=== PATIENT | female | born 1960 | race Caucasian/White ===

== ENCOUNTER 2017-04-12 11:04 | Outpatient (CLI) | payer MEDICAID, OTHER ==
--- NOTE | 2017-04-12 15:37 | MRI ---
MRI LUMBAR SPINE WITH AND WITHOUT CONTRAST: HISTORY: Low back pain since 2011. The patient fell after surgery. COMPARISON: 01/11/12. TECHNIQUE: Lumbar spine MRI is performed with and without intravenous Gadolinium administration. Multisequentia l, multiplanar imaging is performed. FINDINGS: Appropriate T1 marrow signal intensity of lumbar vertebrae. Lumbar spine vertebral body height is ma intained. There is no fracture. No significant STIR hyperintensity to suggest vertebral body edema or ligamentous injury. No abnormal enhancement. Appropriate signal intensity of the psoas muscles and visualized solid organs. Conus medullaris terminates at the mid T12 level. There is interval laminectomy defect at the L3-L4, L4-L5 disk spaces. On the postcontrast images, th ere is some enhancing scar tissue at the operative site. There is no abnormal enhancement within the thecal sac including the cauda equina and conus medullaris. T12-L1: Adequate disk hydration. No significant central canal stenosis. Neural foramen are patent. L1-L2: Adequate disk hydration. Generalized disk bulge, ligamentum flavum thickening, and facet hyp ertrophy result in mild central canal stenosis. Mild to moderate right and left foraminal narrowing. L2-L3: Disk desiccation with mild loss of disk space height. Generalized disk bulge, ligamentum fla vum thickening, and facet hypertrophy result in mild to moderate central canal stenosis. Mild right and left foraminal narrowing. L3-L4: Disk desiccation with mild loss of disk space height. There are posterior decompressive lami nectomy defects. There is narrowing of the right subarticular zone with complete obscuration of the traversing right L4 nerve root. Minimal narrowing of the left subarticular zone. No significant je nosis of the thecal sac. Moderate right and mild left foraminal narrowing. L4-L5: Disk desiccation with moderate loss of disk space height. There are posterior decompressive laminectomy changes. There is a central and left subarticular disk bulge. Disk material abuts but d oes not obscure the traversing left L5 nerve root. The right subarticular zone is unremarkable. No significant stenosis of the thecal sac. Moderate right and left foraminal narrowing. L5-S1: No high-grade central canal stenosis. Moderate to severe bilateral foraminal narrowing. IMPRESSION: Postsurgical changes of the lumbar spine as above. There are degenerative changes of the lumbar spin e as detailed above. POS: [facility]
== END 2017-04-12 11:05 | disposition home or self-care (01) ==
LOC: MRI 11:04
PROVIDERS: ATTEND Nurse Practitioner Family
DX: M51.16 Intervertebral disc disorders with radiculopathy, lumbar region (principal); M47.26 Other spondylosis with radiculopathy, lumbar region; M48.062 Spinal stenosis, lumbar region with neurogenic claudication; Z98.890 Other specified postprocedural states
CPT/HCPCS: 72158

== ENCOUNTER 2017-11-18 10:43 | Outpatient (CLI) | payer OTHER ==
[2017-11-18] MEDS ORDERED: Gadobenate Dimeglumine 529 MG/1 ML (20ML VIAL) ONE (11:30)
== END 2017-11-18 10:44 | disposition home or self-care (01) ==
LOC: BICMRI 10:43
PROVIDERS: ATTEND Nurse Practitioner Family
DX: M48.062 Spinal stenosis, lumbar region with neurogenic claudication (principal); M99.83 Other biomechanical lesions of lumbar region
CPT/HCPCS: 72158; A9579

== ENCOUNTER 2017-12-02 11:06 | Outpatient (CLI) | payer BC, OTHER | END 2017-12-02 11:07 | disposition home or self-care (01) | LOC: BICMAMMO 11:06 | PROVIDERS: ATTEND Nurse Practitioner Family | DX: Z12.31 Encounter for screening mammogram for malignant neoplasm of breast (principal) | CPT/HCPCS: 77063; 77067 ==

== ENCOUNTER 2019-03-10 17:20 | Emergency (ER) | payer BC, OTHER ==
[2019-03-10 17:51] LABS: #Basophils 0.1 thou/uL (0.0-0.2); #Eosinphils 0.2 thou/uL (0.0-0.7); #Lymphocytes 2.2 thou/uL (1.20-3.40); #Monocytes 0.7 thou/uL (0.11-0.59); #Neutrophils 4.4 thou/uL (1.40-6.50); %Basophils 0.9 % (0.0-1.0); %Lymphocytes 28.8 % (21.0-51.0); %Monocytes 8.9 % (0.0-10.0); %Neutrophils 59.4 % (42.0-75.0); Hemoglobin 12.7 g/dL (12.0-16.0); Mean Corpuscular HGB CONC 33.2 g/dL (32.0-36.0); Mean Corpuscular Hemoglobin 29.1 pg (27.0-31.0); Mean Corpuscular Volume 87.6 fL (78.0-98.0); Mean Platelet Volume 8.6 fL (7.4-10.4); Platelet Count 192 thou/uL (130-400); RBC Distribution Width 11.9 % (11.5-14.5); Red Blood Cell (RBC) Count 4.38 mill/uL (4.20-5.40); White Blood Cell (WBC) Count 7.5 thou/uL (4.8-10.8)
--- NOTE | 2019-03-10 17:59 | RAD ---
TWO VIEW CHEST: 03/10/19 COMPARISON: 12/05/15. CLINICAL INDICATION: Chest pain. FINDINGS: No evidence of consolidation, effusion or pneumothorax. Lungs are hyperinflated. Cardiac silhouette i s stable. No significant interval change otherwise depicted. IMPRESSION: 1. No evidence of focal consolidation. 2. COPD. POS: [facility]
[2019-03-10 18:16] LABS: ALT (SGPT) 13 U/L (8-55); AST (SGOT) 16 U/L (5-34); Albumin 3.8 g/dL (3.5-5.0); Alkaline Phosphatase 87 U/L (40-110); Anion Gap 12 mmol/L (10-20); BUN (Urea Nitrogen) 20 mg/dL (9.8-20.1); Bilirubin, Total 0.2 mg/dL (0.2-1.2); Calc. Creatinine Clearance 0 mL/min (70-130); Carbon Dioxide 25 mmol/L (22-29); Chloride 104 mmol/L (98-107); Estimated GFR-MDRD 66; Globulin 3.4 g/dL (2.4-3.5); Glucose 111 mg/dL (70-105); Potassium 3.8 mmol/L (3.5-5.1); Protein, Total 7.2 g/dL (6.0-8.3); Sodium 137 mmol/L (136-145)
[2019-03-10 20:21] LABS: Troponin I Less than 0.010 ng/mL (< 0.028)
== END 2019-03-10 20:45 | disposition home or self-care (01) ==
LOC: ERS 17:20
DX: R07.89 Other chest pain (principal); I25.10 Atherosclerotic heart disease of native coronary artery without angina pectoris; I10 Essential (primary) hypertension; F17.210 Nicotine dependence, cigarettes, uncomplicated; Z79.01 Long term (current) use of anticoagulants; Z86.73 Personal history of transient ischemic attack (TIA), and cerebral infarction without residual deficits; Z79.899 Other long term (current) drug therapy
CPT/HCPCS: 36415; 71046; 80053; 84484; 85025; 93005

== ENCOUNTER 2019-03-14 18:00 | Observation (INO) | payer BC, OTHER ==
[~2019-03-14 18:00] MED LIST: ISOVUE-370 76%-LOCM 1 ML ONE
--- NOTE | 2019-03-14 18:29 | RAD ---
CHEST ONE VIEW: 03/14/19 HISTORY: Chest pain, difficulty breathing. COMPARISON: 12/05/15 exam. Heart size and mediastinum are within normal limits. The lungs are clear of any infiltrative process. The bones appear slightly demineralized. IMPRESSION: No active intrathoracic disease. Stable chest. POS: [facility]
[2019-03-14 19:07] LABS: #Basophils 0.1 thou/uL (0.0-0.2); #Eosinphils 0.2 thou/uL (0.0-0.7); #Monocytes 0.7 thou/uL (0.11-0.59); #Neutrophils 5.3 thou/uL (1.40-6.50); %Basophils 0.7 % (0.0-1.0); %Eosinophils 1.9 % (0.0-10.0); %Lymphocytes 24.5 % (21.0-51.0); %Neutrophils 64.9 % (42.0-75.0); Hemoglobin 12.9 g/dL (12.0-16.0); Mean Corpuscular HGB CONC 33.5 g/dL (32.0-36.0); Mean Corpuscular Hemoglobin 29.8 pg (27.0-31.0); Mean Corpuscular Volume 88.8 fL (78.0-98.0); Mean Platelet Volume 8.5 fL (7.4-10.4); Platelet Count 204 thou/uL (130-400); RBC Distribution Width 11.8 % (11.5-14.5); Red Blood Cell (RBC) Count 4.35 mill/uL (4.20-5.40); White Blood Cell (WBC) Count 8.2 thou/uL (4.8-10.8)
[2019-03-14] MEDS ORDERED: Ketorolac Tromethamine 30 MG/ML VIAL ONE (19:17)
[2019-03-14] MEDS ORDERED: Nitroglycerin 2% Ointment 1 INCH/1 GM Packet ONE (19:17)
[2019-03-14 19:30] LABS: ALT (SGPT) 16 U/L (8-55); AST (SGOT) 20 U/L (5-34); Albumin 4.1 g/dL (3.5-5.0); Alkaline Phosphatase 92 U/L (40-110); Anion Gap 14 mmol/L (10-20); BUN (Urea Nitrogen) 24 mg/dL (9.8-20.1); Bilirubin, Total 0.4 mg/dL (0.2-1.2); CK (CPK) 539 U/L (29-168); Calc. Creatinine Clearance 0 mL/min (70-130); Calcium 9.3 mg/dL (7.8-10.44); Carbon Dioxide 23 mmol/L (22-29); Chloride 104 mmol/L (98-107); Estimated GFR-MDRD 60; Globulin 3.1 g/dL (2.4-3.5); Glucose 92 mg/dL (70-105); Lipase 40 U/L (8-78); Potassium 4.3 mmol/L (3.5-5.1); Protein, Total 7.2 g/dL (6.0-8.3); Sodium 137 mmol/L (136-145)
--- NOTE | 2019-03-14 20:37 | CT ---
CTA Angio Chest W WO Con History: Chest pain after being arrested Comparison: Chest radiograph same day Findings: CT angiogram chest performed after the intravenous administration of contrast. 3-D renderin g provided. The pulmonary trunk measures 3.2 cm. The pulmonary arteries are mildly dilated. No proximal segmental pulmonary arterial filling defect. No pericardial effusion. Hepatic contour is very lobular although is unchanged from comparison examinations dating back to 201 3 likely sequelae over regenerative nodules. High-grade narrowing, 50-75%, of the celiac trunk due to the median arcuate ligament appears also 50% narrowing of the ostia of the superior mesenteric artery due to calcific and soft plaque. Severe emphysema, centrilobular. No pneumothorax. No effusion. No consolidation. Impression: 1. No pulmonary embolism. 2. No acute intrathoracic abnormality. 3. Chronic findings as described. 4. Apparent decompressed breast implants.
[2019-03-14 23:03] VITALS: BMI 24.7
[2019-03-14 23:27] LABS: Troponin I Less than 0.010 ng/mL (< 0.028)
[2019-03-15 02:03] LABS: Troponin I Less than 0.010 ng/mL (< 0.028)
[2019-03-15] MEDS ORDERED: Nitroglycerin 0.4 MG TAB (25 Tab Bottle) PO PRN (08:59)
[2019-03-15] MEDS ORDERED: FLU VACC QS2019-20(6MOS UP)/PF 60 MCG/0.5 ML SYRINGE IM ONE (09:00)
[2019-03-15] MEDS ORDERED: Aspirin 325 mg Enteric Coated Tablet PO SCH (09:00)
[2019-03-15] MEDS ORDERED: Sodium Chloride 0.9% 1,000 ML IV SCH (09:00)
[2019-03-15] MEDS ORDERED: Ondansetron PF 4 MG/2 ML Vial IVP PRN (09:03)
[2019-03-15] MEDS ORDERED: Acetaminophen 325 MG TAB PO PRN (09:03)
[2019-03-15] MEDS ORDERED: Senokot S 8.6-50 MG TAB PO PRN (09:03)
[2019-03-15] MEDS ORDERED: Ondansetron ODT 4 MG TAB PO PRN (09:03)
[2019-03-15] MEDS ORDERED: Calcium Carbonate 500 MG ChewTAB PO PRN (09:03)
[2019-03-15] MEDS ORDERED: Clopidogrel Bisulfate 75 MG TAB PO SCH (09:15)
[2019-03-15] MEDS ORDERED: Sodium Chloride 0.9% 500 ML IV SCH (09:15)
[2019-03-15] MEDS ORDERED: Aspirin 81 mg Enteric Coated Tablet PO SCH (09:15)
[2019-03-15] MEDS ORDERED: Isosorbide Mononitrate (ER) 30 MG TAB PO SCH (09:15)
[2019-03-15] MEDS ORDERED: ADENOSINE 60 MG/20 ML VIAL ONE (09:47)
[2019-03-15] MEDS ORDERED: HYDROcodone/Acetaminophen 5/325 mg Tablet PO PRN (09:58)
[2019-03-15 12:45] LABS: Amphetamine Detected (NotDetected); Cocaine Metabolite Screen Not Detected (NotDetected); Medtox Reader # READER 4; Methamphetamine Detected (NotDetected); Opiate Screen Detected (NotDetected); Phencyclidine (PCP) Not Detected (NotDetected); THC/Cannabinoid Screen Detected (NotDetected)
[2019-03-15 12:46] LABS: Barbiturates Screen Not Detected (NotDetected); Benzodiazepine Screen Not Detected (NotDetected); Medtox Control Line Valid? VALID (VALID); Methadone Not Detected (NotDetected); Oxycodone Screen Not Detected (NotDetected); Tricyclic Screen Not Detected (NotDetected)
[2019-03-15] MEDS ORDERED: HYDROcodone/Acetaminophen 10/325 mg Tablet PO SCH (13:00)
[2019-03-15] MEDS ORDERED: Lorazepam 0.5 MG TAB PO PRN (13:21)
[2019-03-15] MEDS ORDERED: Gabapentin 300 MG CAP PO SCH (15:00)
--- NOTE | 2019-03-15 15:27 | CON ---
DATE OF CONSULTATION: HISTORY OF PRESENT ILLNESS: The patient is a 58-year-old woman, who presents with chest discomfort. The patient has a previous history of coronary artery disease. She states approximately 9 years ago, she underwent a cardiac evaluation and was found to have a 40% LAD lesion. She also states she underwent a procedure for abdominal aneurysm and had a stent placed in aorta. The patient was admitted in December of 2015 with chest pain. She underwent a stress test, revealed normal left ventricular ejection fraction 76% with no evidence of ischemia. The patient presents with recurrent chest discomfort. She states about a month ago, she started having increasing chest discomfort. She states she has been using more nitroglycerin tablets. The patient has been under a great deal of stress. She states that she developed midsternal chest discomfort. For the past 4 days, this would last up to 30 minutes. The patient denies having any present chest discomfort. PAST MEDICAL HISTORY: 1. CAD. 2. Hypertension. 3. Peripheral vascular disease. 4. Dyslipidemia. PAST SURGICAL HISTORY: Hysterectomy, appendectomy, back surgery. SOCIAL HISTORY: Long history of tobacco abuse. ALLERGIES: CODEINE, DEMEROL, LAMICTAL, PENICILLIN. MEDICATIONS: See nursing list. 1. Aspirin 81. 2. Plavix 75. 3. Gabapentin 600 t.i.d. 4. Imdur 30 q.a.m. 5. Lisinopril-hydrochlorothiazide 1 tablet daily. PHYSICAL EXAMINATION: GENERAL: Ill-appearing woman in distress. VITAL SIGNS: Blood pressure 159/75. NECK: No jugular venous distention. LUNGS: Clear to auscultation. HEART: Regular rate and rhythm. Normal S1 and S2. ABDOMEN: Nondistended. EXTREMITIES: Showed no edema. VASCULAR: Radial pulses are 2+. NEUROLOGIC: Nonfocal. LABORATORY DATA: Sodium 137, potassium 4.3, chloride 104, bicarbonate 23, BUN 24, creatinine 0.95. Troponin 0.01. White blood cell count 8.2, hemoglobin 12.9, hematocrit 38.6, and her platelets are 204. IMAGING STUDIES: Her EKG revealed normal sinus rhythm, normal ECG. IMPRESSION: 1. Chest pain. 2. History of peripheral vascular disease. 3. History of stenting of an aortic aneurysm. 4. Hypertension. 5. Dyslipidemia. 6. Tobacco abuse. This patient presents with recurrent chest discomfort. EKG is unremarkable. Cardiac enzymes revealed no evidence of myocardial infarction. The patient at this time will undergo a stress test to evaluate for ischemia. We will follow this patient with you through her hospitalization. Job ID: [id number] MTDD
--- NOTE | 2019-03-15 15:53 | NM ---
EXAM: CARDIAC SPECT HISTORY: Chest pain TECHNIQUE: A myocardial perfusion scan was performed using the single isotope 1 day protocol with fritz hnetium 99m sestamibi. [10 mCi] was injected intravenously for the rest exam followed by 30 mCi for the stress study. Pharmacologic stress with adenosine was monitored and interpreted by Gloria Teresa nurse practitioner FINDINGS: Homogeneous tracer distribution is seen in the myocardial segments on stress and rest image s without fixed or reversible defects. Gated SPECT LVEF: 78% Wall motion exam: Normal IMPRESSION: Normal myocardial perfusion scan
[2019-03-15 16:12] VITALS: TEMP 97.7
[2019-03-15 17:28] VITALS: BP 162/78
[2019-03-15] MEDS ORDERED: Famotidine 20 MG TAB PO SCH (21:00)
[2019-03-15] MEDS ORDERED: Gabapentin 400 MG CAP PO SCH (21:00)
--- NOTE | 2019-03-16 07:58 | SS ---
DATE OF ADMISSION: 03/14/2019 DATE OF DISCHARGE: 03/15/2019 CHIEF COMPLAINT: Chest discomfort. HISTORY OF PRESENT ILLNESS: The patient is a 58-year-old white female, with coronary artery disease status post stent placement, hypertension, dyslipidemia, and CVA in the past, presented to the hospital with chest discomfort. The chest discomfort started this evening after getting arrested. She describes the chest pain as heaviness along with numbness of her right arm. She also had shortness of breath along with lightheadedness. She rates the pain as 7/10, dull in nature, pressure-like without any aggravating or relieving factor. At times, the pain was getting worse with deep breathing. She denies any orthopnea, paroxysmal nocturnal dyspnea, or lower extremity edema. She was evaluated in the emergency room 3 days ago for chest discomfort and was discharged home. She was advised to follow up with her primary sales utility representative. The patient has not seen a sales utility representative for a long time per the patient report. PAST MEDICAL HISTORY: 1. Coronary artery disease. 2. Hypertension. 3. Peripheral vascular disease. 4. Dyslipidemia. 5. Chronic pain syndrome. 6. History of cerebrovascular accident. PAST SURGICAL HISTORY: 1. Cardiac catheterization. 2. Lumbar surgery. 3. Bilateral iliac artery stent placement as well as in the abdominal aorta. 4. Hysterectomy. 5. Appendectomy. 6. Breast implant. ALLERGIES: THE PATIENT IS ALLERGIC TO CODEINE, LAMICTAL, DEMEROL, AND PENICILLIN. CURRENT HOME MEDICATIONS: The patient is on; 1. Aspirin. 2. Plavix. 3. Lasix as needed. 4. Gabapentin. 5. Isosorbide mononitrate. 6. Lisinopril. 7. Hydrochlorothiazide. 8. Topamax. 9. Sublingual nitroglycerin. 10. Omeprazole. 11. [place]. She is unable to provide the exact dosages of the medicines. SOCIAL HISTORY: The patient has a long history of tobacco dependence. She currently lives at home with her . 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 She is full code and makes her own decision with the help of her family. FAMILY HISTORY: Positive for coronary artery disease and CVA. REVIEW OF SYSTEMS: All other review of systems was reviewed and was found negative. PHYSICAL EXAMINATION: VITAL SIGNS: Temperature 98.2, respirations 22, pulse of 73, blood pressure of 173/117 with O2 saturation 100% on room air. GENERAL: A 58-year-old female in no apparent distress. Denies any chest discomfort at this time. HEENT: Head, atraumatic and normocephalic. Sclerae anicteric. Moist mucous membranes. No oral lesion. NECK: Supple. No JVD appreciated. No carotid bruit. LUNGS: Clear to auscultation bilaterally. No wheezing, rales, rhonchi. HEART: S1, S2 present. Regular rate and rhythm. No murmurs, rubs, or gallops appreciated. ABDOMEN: Soft, nontender. Bowel sounds present. EXTREMITIES: No edema or calf tenderness. NEUROLOGY: Grossly nonfocal. Moves all 4 extremities. PSYCHIATRY: Alert, awake, oriented x3. SKIN: Warm and dry. LYMPH NODES: No palpable lymph nodes in the neck. PERIPHERAL VASCULAR: Radial pulses palpable bilaterally. MUSCULOSKELETAL: No joint swelling or tenderness. LABORATORY FINDINGS: WBC 8.2 with hemoglobin 12.9. D-dimer 1.04. BUN 24 with creatinine 0.95. CK was 539. Troponin was negative. Urine drug screen was positive for opiates, methamphetamines, and cannabis. CT angiogram of the chest by my review was negative for infiltrate or edema. Chest x-ray by my review was negative. BRIEF HOSPITAL COURSE: The patient was admitted to the telemetry unit with a diagnosis of chest discomfort, rule out acute coronary syndrome. Serial troponins remained negative. Urine drug screen, however, was positive for methamphetamine, amphetamine, cannabinoid, and opiate. Lifestyle modification was emphasized. The patient was evaluated by Cardiology, Dr. Rohan Lewis. She underwent a Cardiolite stress test that was negative for reversible ischemia. Ejection fraction was 78% without any wall motion abnormality. She has been cleared by Cardiology for discharge. FINAL DIAGNOSES: 1. Chest discomfort, acute coronary syndrome ruled out. 2. Coronary artery disease, on aspirin and Plavix. 3. Chronic pain syndrome. 4. Methamphetamine abuse. 5. Cannabis abuse. 6. Hypertension. 7. Peripheral vascular disease. 8. History of cerebrovascular accident. 9. Ongoing tobacco abuse. The patient was counseled. 10. Statin intolerance. 11. Elevated CK. A repeat CK after 3 to 4 days is recommended. 12. Chronic kidney disease, stage 2. 13. Elevated D-dimer. CT angiogram of the chest was negative. Plan of care was discussed with the patient in detail, she stated understanding. Job ID: [id number]
[2019-03-16] MEDS ORDERED: Aspirin 81 mg Enteric Coated Tablet PO SCH (09:00)
[2019-03-16] MEDS ORDERED: Isosorbide Mononitrate (ER) 30 MG TAB PO SCH (09:00)
[2019-03-16] MEDS ORDERED: Clopidogrel Bisulfate 75 MG TAB PO SCH (09:00)
[2019-03-16] MEDS ORDERED: Topiramate 25 MG TAB PO SCH (09:00)
--- NOTE | 2019-03-19 00:12 | EKG ---
Test Reason : Blood Pressure : / mmHG Vent. Rate : 066 BPM Atrial Rate : 066 BPM P-R Int : 146 ms QRS Dur : 074 ms QT Int : 424 ms P-R-T Axes : 054 028 063 degrees QTc Int : 444 ms Normal sinus rhythm Normal ECG Confirmed by GAMA DEMPSEY ([id number]), map editor ANNA MENDEZ ([id number]) on 03/19/2019 12:12:17 AM Referred By: Confirmed By:GAMA DEMPSEY
== END 2019-03-15 17:54 | disposition home or self-care (01) ==
LOC: ERS 18:00 → 2SW 22:04
PROVIDERS: ADMIT Hospitalist; ATTEND Hospitalist
DX: R07.89 Other chest pain (principal); I25.10 Atherosclerotic heart disease of native coronary artery without angina pectoris; G89.4 Chronic pain syndrome; I12.9 Hypertensive chronic kidney disease with stage 1 through stage 4 chronic kidney disease, or unspecified chronic kidney disease; N18.2 Chronic kidney disease, stage 2 (mild); E78.5 Hyperlipidemia, unspecified; F12.10 Cannabis abuse, uncomplicated; F17.210 Nicotine dependence, cigarettes, uncomplicated; I73.9 Peripheral vascular disease, unspecified; Z79.82 Long term (current) use of aspirin; Z79.899 Other long term (current) drug therapy; Z86.73 Personal history of transient ischemic attack (TIA), and cerebral infarction without residual deficits; Z88.5 Allergy status to narcotic agent; Z88.0 Allergy status to penicillin; Z95.5 Presence of coronary angioplasty implant and graft
CPT/HCPCS: 36415; 71045; 71275; 78452; 80053; 80306; 82550; 83690; 84484; 85025; 85379; 90471; 90686; 93005; 93017; 93306; 96361; 96372; 96374; A9500; G0008; G0378; J0153; J1885; Q9966

== ENCOUNTER 2019-12-01 11:32 | Inpatient (IN) | payer BC, OTHER ==
[~2019-12-01 11:32] MED LIST changes: -ISOVUE-370 76%-LOCM 1 ML ONE; +Iopamidol-370 76% 500 ML 1 ML ONE
[2019-12-01 12:02] LABS: #Basophils 0.1 thou/uL (0.0-0.2); #Eosinphils 0.1 thou/uL (0.0-0.7); #Lymphocytes 2.3 thou/uL (1.20-3.40); #Monocytes 0.8 thou/uL (0.11-0.59); #Neutrophils 9.6 thou/uL (1.40-6.50); %Basophils 0.6 % (0.0-1.0); %Eosinophils 0.8 % (0.0-10.0); %Lymphocytes 17.8 % (21.0-51.0); %Monocytes 6.1 % (0.0-10.0); %Neutrophils 74.7 % (42.0-75.0); Hemoglobin 14.7 g/dL (12.0-16.0); Mean Corpuscular HGB CONC 32.7 g/dL (32.0-36.0); Mean Corpuscular Hemoglobin 28.9 pg (27.0-31.0); Mean Corpuscular Volume 88.4 fL (78.0-98.0); Mean Platelet Volume 9.7 fL (7.4-10.4); Platelet Count 248 thou/uL (130-400); White Blood Cell (WBC) Count 12.9 thou/uL (4.8-10.8)
[2019-12-01 12:07] LABS: Prothrombin Time 12.8 sec (12.0-14.7)
[2019-12-01 12:17] LABS: ALT (SGPT) 14 U/L (8-55); AST (SGOT) 15 U/L (5-34); Albumin 4.2 g/dL (3.4-4.8); Alkaline Phosphatase 104 U/L (40-110); Anion Gap 16 mmol/L (10-20); BUN (Urea Nitrogen) 25 mg/dL (9.8-20.1); Bilirubin, Total 0.3 mg/dL (0.2-1.2); Calc. Creatinine Clearance 0 mL/min (70-130); Calcium 10.1 mg/dL (7.8-10.44); Carbon Dioxide 27 mmol/L (23-31); Chloride 101 mmol/L (98-107); Estimated GFR-MDRD 53; Globulin 3.8 g/dL (2.4-3.5); Glucose 122 mg/dL (80-115); Potassium 3.7 mmol/L (3.5-5.1); Sodium 140 mmol/L (136-145)
[2019-12-01 12:23] LABS: Acetaminophen Less than 6.0 mcg/mL (10.0-30.0); Alcohol Less than 10 mg/dL (Less than 10); Salicylate Less than 8.0 mg/dL (15.0-30.0)
[2019-12-01 13:32] LABS: Amphetamine Detected (NotDetected); Barbiturates Screen Not Detected (NotDetected); Benzodiazepine Screen Not Detected (NotDetected); Cocaine Metabolite Screen Not Detected (NotDetected); Medtox Control Line Valid? VALID (VALID); Medtox Reader # READER 1; Methadone Not Detected (NotDetected); Methamphetamine Not Detected (NotDetected); Opiate Screen Not Detected (NotDetected); Oxycodone Screen Not Detected (NotDetected); Phencyclidine (PCP) Not Detected (NotDetected); THC/Cannabinoid Screen Not Detected (NotDetected); Tricyclic Screen Not Detected (NotDetected)
--- NOTE | 2019-12-01 13:50 | CT ---
CT BRAIN WITHOUT CONTRAST: 12/01/19 HISTORY: 59-year-old female with level II stroke. Aphasia. COMPARISON: 10/30/11. FINDINGS: No evidence of acute infarct, hemorrhage, midline shift, or abnormal extra-axial fluid collections ar e seen. The ventricular size is normal and the basilar cisterns patent. Changes of chronic small vess el ischemic disease again noted. The bony calvarium is intact. The visualized paranasal sinuses and m astoid air cells are well aerated. The mass in the right superficial lobe of the right parotid gland demonstrates mild interval increase in size measuring about 12 mm. IMPRESSION: 1. No CT evidence of acute intracranial process. 2. Slowly growing right parotid mass. ENT consultation is recommended. Discussed over the telephone with ER physician, Dr. James Fitzgerald at 11:54 a.m. Paloma CALLOWAY POS: [facility]
--- NOTE | 2019-12-01 13:58 | RAD ---
EXAM: CHEST ONE VIEW: 12/01/19 HISTORY: Aphasia. Stroke. COMPARISON: 03/14/19. FINDINGS: Increased linear and interstitial markings bilaterally. Heart size is normal. No confluent pneumonia, overt edema, or pleural effusion. IMPRESSION: Minimal increased markings bilaterally. Atherosclerosis of the aorta. No acute intrathoracic disease. POS: [facility]
[2019-12-01] MEDS ORDERED: Ondansetron PF 4 MG/2 ML Vial IVP PRN (15:39)
[2019-12-01] MEDS ORDERED: Acetaminophen 650 MG Suppository PR PRN (15:39)
[2019-12-01] MEDS ORDERED: Furosemide 20 MG TAB PO PRN (15:43)
[2019-12-01] MEDS ORDERED: Nitroglycerin 0.4 MG TAB (25 Tab Bottle) SL PRN (15:43)
[2019-12-01 15:46] LABS: Bacteria/HPF None Seen HPF (None Seen); Bilirubin Negative (Negative); Blood, Urine Negative (Negative); Clarity Clear (Clear); Glucose, Urine (Dipstick) Normal (Negative); Leukocyte 75 Leu/uL (Negative); Nitrite Negative (Negative); Protein, Urine (Dipstick) Negative (Neg-Trace); RBC/HPF 0-3 HPF (0-3); Squamous Epithelial 0-3 HPF (0-3); Urobilinogen Normal mg/dL (Less than 2); WBC/HPF 0-3 HPF (0-3)
[2019-12-01 16:19] LABS: Hemoglobin A1c 5.7 % (4.0-6.0)
[2019-12-01 16:33] LABS: Cardiac Risk 5.6 (Less than 4.5)
--- NOTE | 2019-12-01 16:47 | HP ---
CHIEF COMPLAINT: Expressive aphasia. HISTORY OF PRESENT ILLNESS: A 59-year-old female without significant past medical history, had stroke-like symptoms 4 days ago, witnessed by her spouse. The patient has a history of coronary artery disease on Plavix, hypertension, peripheral vascular disease, chronic pain syndrome, and history of CVA in the past. Her symptoms of expressive aphasia started 4 days prior. Initially, she had problem finding words since Wednesday, today it got worse. She did not have any coherent speech. No other sensory or strength impairment. She did not have any chest pain, shortness of breath, or headache. No sick exposure. No fever or shortness of breath. She takes aspirin and Plavix daily, she took this morning. Her chest x -ray is clear. EKG normal sinus rhythm. CT head as well as CT angiogram are negative. Her spouse is not at bedside. Information gathered from the ER physician as well as review of chart. The patient is not verbalizing much, but she does understand what I am saying and she does follow the commands. She has right facial droop. She has significant expressive aphasia. She has no sensory impairment. She is moving her extremities spontaneously. REVIEW OF SYSTEMS: Complete review of systems not obtainable because of the patient's expressive aphasia, but it appears she did not have any prodromal symptoms of urinary tract infection or fever or chills or sick exposure. PAST MEDICAL HISTORY: Coronary artery disease, peripheral vascular disease, chronic pain syndrome, history of CVA without significant residual deficits in the past, hyperlipidemia, and hypertension. PAST SURGICAL HISTORY: Lumbar surgery, hysterectomy, appendectomy, breast implant, and cardiac cath as well as bilateral iliac artery stent placement. HOME MEDICATIONS: 1. Topamax 50 mg daily. 2. Protonix 40 mg daily. 3. Nitrostat 0.4 mg sublingually every 5 minutes as needed. 4. Lisinopril/hydrochlorothiazide 20/25 mg daily. 5. Imdur 30 mg daily. 6. Lasix 20 mg daily as needed. 7. Plavix 75 mg daily. 8. Aspirin 81 mg daily. 9. [place] 10/325 every 4 hours. 10. Gabapentin 600 mg three times a day. SOCIAL HISTORY: The patient lives with her spouse. Smoking and alcohol use. Not able to get in any other information. FAMILY HISTORY: Not obtainable. PHYSICAL EXAMINATION: GENERAL: She is normotensive, afebrile. She has right facial droop. Sensation intact. Strength in both upper and lower extremities, 4/5. She has significant right facial droop. Significant expressive aphasia. Alert and oriented x3. CARDIOVASCULAR: Regular rate and rhythm without murmurs, rubs, or gallops. LUNGS: Clear to auscultation bilaterally without wheezing, rales, or rhonchi. ABDOMEN: Soft, nontender, nondistended. Good bowel sounds. EXTREMITIES: Without pitting edema. LABORATORY DATA: WBC 12.9. INR is 1.0. Creatinine is 1.06, rest of the CMP panel in the normal range. Troponin 0.012. UA is pending. Urinalysis, amphetamine detected. IMAGING STUDIES: CT head as well as CT angiogram, no abnormality. IMPRESSION AND PLAN: 1. A 59-year-old female with a history of CVA, coronary artery disease, peripheral vascular disease, chronic pain syndrome as well as neuropathy, presenting with expressive aphasia. We will get MRI of the brain. 2D echo. Neuro consult placed for Dr. Cruz. PT, OT as well as speech therapy. Bedside swallow, if successful, then we will continue her home regimen including aspirin and Plavix. She is not on Lipitor. I will start her on a low dose and adjust the dose based on her LDL level.-------[later noted that she has allergy for statin] Neuro check q.4 hours. 2. Hypertension: For now allow permissive hypertention and once SBP> 160, continue with lisinopril/hydrochlorothiazide as well as Imdur per home regimen. 3. Coronary artery disease. Currently, her troponin is negative. We will continue with aspirin, Plavix, Imdur, lisinopril/hydrochlorothiazide as well. 4. Chronic pain syndrome. Continue with [place] for now. 5. Urinalysis pending. We will follow up on that. 6. Rest of the management based on the clinical course. 7. Await an MRI and rule out acute bleed, before initiating on anticoagulation for deep venous thrombosis prophylaxis. Job ID: [id number] [facility]
[2019-12-01 16:55] VITALS: BMI 21.4
[2019-12-02] MEDS ORDERED: Lisinopril/Hydrochlorothiazide 20/25 mg Tablet PO SCH (09:00)
[2019-12-02] MEDS: Aspirin 81 mg Enteric Coated Tablet PO SCH (09:30)
[2019-12-02] MEDS: Clopidogrel Bisulfate 75 MG TAB PO SCH (09:30)
[2019-12-02] MEDS: Topiramate 25 MG TAB PO SCH ×2 (09:31→09:35)
[2019-12-02] MEDS: Acetaminophen 325 MG TAB PO PRN (09:38)
[2019-12-02] MEDS ORDERED: Diazepam 5 MG TAB PO SCH (11:15)
--- NOTE | 2019-12-02 13:26 | MRI ---
MRI OF BRAIN WITH AND WITHOUT CONTRAST: 12/02/19 INDICATIONS: CVA. Right sided weakness. Comparison is made to a prior MRI from 2012. FINDINGS: Motion artifact degrades many of the sequences. Diffusion weighted sequence shows numerous foci of restricted diffusion involving the left cerebral h emisphere. These are seen primarily in the subcortical white matter and the deep white matter of the left cerebral hemisphere. A few tiny cortical foci are seen. Increased FLAIR signal is seen in these locations. Findings are consistent with deep watershed white matter infarct which is often associated with carotid artery disease. Recent CTA head showed mild atherosclerotic changes at both bulbs. This could also be seen with hypoperfusion and recommend clinical correlation regarding any prior episode s. No abnormal enhancement identified. IMPRESSION: Extensive area of deep watershed infract involving the subcortical and deep white matter of the left cerebral hemisphere. This can be associated with carotid artery disease or hypoperfusion. Recommend c linical correlation. This is in the distribution of the left middle cerebral artery. POS: [facility]
--- NOTE | 2019-12-02 13:52 | CON ---
DATE OF CONSULTATION: 12/02/2019 REASON FOR CONSULTATION: Expressive aphasia. HISTORY OF PRESENT ILLNESS: Ms. Marcos is a 59-year-old female with medical history significant for coronary artery disease, peripheral vascular disease, prior CVA, hyperlipidemia, hypertension, presented with stroke-like symptoms, which were witnessed by a spouse. The patient developed difficulty talking and finding words, which became progressively worse over the next few days. The patient is unable to give the history, so history is taken from review of the medical records. There is no documentation of nausea, vomiting, headache, chest pain, abdominal pain associated with aphasia and weakness. She takes aspirin and Plavix because of the prior stroke. She was brought to the emergency room with head CT was done, which was negative for acute intracranial pathology. CT angiogram was also done , which was negative for hemodynamically significant stenosis. She was admitted for further evaluation. REVIEW OF SYSTEMS: Unable to perform because of expressive aphasia. PAST MEDICAL HISTORY: Coronary artery disease, peripheral vascular disease, chronic pain syndrome, prior CVA, hyperlipidemia, and hypertension. PAST SURGICAL HISTORY: Lumbar surgery, hysterectomy, appendectomy, breast implant, cardiac catheterization as well as bilateral iliac artery stent placement. HOME MEDICATIONS: 1. Topamax 50 mg daily. 2. Protonix 40 mg daily. 3. Nitrostat 0.4 mg sublingually as needed. 4. Lisinopril/hydrochlorothiazide 20/25 mg daily. 5. Imdur 30 mg daily. 6. Lasix 20 mg as needed. 7. Plavix 75 mg daily. 8. Aspirin 81 mg daily. 9. [place] 10/325 every 4 hours. 10. Gabapentin 600 mg three times a day. SOCIAL HISTORY: . She lives with her spouse. Denies smoking, alcohol, or illegal drug use. No documentation of smoking, alcohol, or illegal drug use. FAMILY HISTORY: Not significant. ALLERGIES; Penicillin, HMG Coa reductase, codeine - Objective Vital Signs & Weight: Vital Signs (12 hours) Temp Pulse Pulse Resp BP BP Pulse Ox 12/02/19 15:59 97.7 F 68 20 116/67 94 L 12/02/19 12:00 97.9 F 95 16 114/61 96 12/02/19 09:31 88 12/02/19 08:35 101 H 146/80 H 12/02/19 08:05 97 12/02/19 07:23 97.8 F 88 19 150/81 H 97 Weight Weight 137 lb 1.6 oz I&O: 12/01/19 12/02/19 12/03/19 06:59 06:59 06:59 Intake Total 480 Balance 480 Active Medications Generic Name Dose Route Start Last Admin Trade Name Freq PRN Reason Stop Dose Admin Acetaminophen 650 mg 12/01/19 15:39 12/02/19 09:38 Tylenol PO 650 mg Q4H PRN Administration Headache/Fever/Mild Pain (1-3) Aspirin 81 mg 12/02/19 09:00 12/02/19 09:30 Ecotrin PO 81 mg DAILY DERRELL Administration Clopidogrel Bisulfate 75 mg 12/02/19 09:00 12/02/19 09:30 Plavix PO 75 mg DAILY DERRELL Administration Pantoprazole Sodium 40 mg 12/02/19 09:00 12/02/19 09:30 Protonix PO 40 mg DAILY DERRELL Administration - Exam General Appearance: awake alert, ill appearing Eye: PERRL ENT: normocephalic atraumatic Neck: supple Heart: RRR, normal peripheral pulses Respiratory: CTAB Gastrointestinal: soft, normal bowel sounds Neurological - Mental status; the patient has significant aphasia and she opens her eyes to verbal stimuli. Motor; muscle tone is decreased in the right upper and lower extremities as compared to the left upper and lower extremities. Right upper extremity 3/5, right lower extremity 4/5, left upper and lower extremity 5/5. Cerebellar; unable to perform on the right secondary to weakness. Cranial nerves; pupils are equal and reactive to light. Face, right facial droop. Tongue midline. Moves neck in both direction. Hearing seems to be intact. DATA REVIEWED: I reviewed the CT as well as CT angiogram did not reveal any abnormality. ASSESSMENT AND PLAN: Ms. Karely Marcos is a 59-year-old female with history significant for hypertension, hyperlipidemia, prior cerebrovascular accident, coronary artery disease, who presented for expressive aphasia and right hemiparesis with right facial droop, most likely stroke in the left middle cerebral artery territory. Consider MRI of the brain to evaluate for acute intracranial process. 2D echo to rule out cardioembolic source . Continue aspirin and Plavix for secondary stroke prevention. Recommend statin for secondary stroke prevention and check fasting lipid panel. Neuro checks every 4 hours. Monitor blood pressure. Permissive control of blood pressure at this time. Strict control of blood glucose. Telemetry. PT/OT/Speech. Continue medical management per Primary Team. Plan discussed with the primary attending Dr. Huggins. We will continue to follow. Thank you for the consult. Job ID: [id number] [facility]
--- NOTE | 2019-12-02 16:59 | PDOC.HOSPP ---
- Subjective Encounter Date: 12/02/19 Encounter Time: 16:30 Subjective: pt returned from MRI, reprt reviewed. pt remains the same today except able to say few words but it is uninterpretable. talk to RN. - Objective Vital Signs & Weight: Vital Signs (12 hours) Temp Pulse Pulse Resp BP BP Pulse Ox 12/02/19 15:59 97.7 F 68 20 116/67 94 L 12/02/19 12:00 97.9 F 95 16 114/61 96 12/02/19 09:31 88 12/02/19 08:35 101 H 146/80 H 12/02/19 08:05 97 12/02/19 07:23 97.8 F 88 19 150/81 H 97 Weight Weight 137 lb 1.6 oz I&O: 12/01/19 12/02/19 12/03/19 06:59 06:59 06:59 Intake Total 480 Balance 480 Result Diagrams: 12/01/19 11:44 12/01/19 11:44 Hospitalist ROS - Medication Medications: Active Medications Generic Name Dose Route Start Last Admin Trade Name Abisaiq PRN Reason Stop Dose Admin Acetaminophen 650 mg 12/01/19 15:39 12/02/19 09:38 Tylenol PO 650 mg Q4H PRN Administration Headache/Fever/Mild Pain (1-3) Aspirin 81 mg 12/02/19 09:00 12/02/19 09:30 Ecotrin PO 81 mg DAILY DERRELL Administration Clopidogrel Bisulfate 75 mg 12/02/19 09:00 12/02/19 09:30 Plavix PO 75 mg DAILY DERRELL Administration Pantoprazole Sodium 40 mg 12/02/19 09:00 12/02/19 09:30 Protonix PO 40 mg DAILY DERRELL Administration - Exam General Appearance: awake alert, ill appearing Eye: PERRL ENT: normocephalic atraumatic Neck: supple Heart: RRR, normal peripheral pulses Respiratory: CTAB Gastrointestinal: soft, normal bowel sounds Neurological: facial droop Neurological - other findings: aphasia Psychiatric: oriented to person, somnolent Hosp A/P - Plan Watershed infarct in Left hemisphere Expressive aphasia --cw speech therapy --asa, plavix --permissive hypertension for another 24hrs. -PT/OT c/s palced hx of prior CVA without deficits -- mgmt as above HTN - allow permissive HTN x 24hrs and intervene w.. PRN if SBP>180 NO aC for next 24hrs. placed order for carotid doppler -- yes, CTA --no abnormality. scds for now for DVT ppx.
--- NOTE | 2019-12-02 23:45 | ULT ---
BILATERAL CAROTID DUPLEX ULTRASOUND: HISTORY: CVA TECHNIQUE: Grayscale, color-flow and spectral Doppler ultrasound imaging of the extracranial carotid artery syst ems and vertebral arteries was performed bilaterally. FINDINGS: There is [id number] atherosclerotic plaque involving both carotid bulbs. The peak systolic velocity in the right ICA measures 71.1 cm/s. The peak systolic velocity in the ri ght CCA measures 130.3 cm/s. The peak systolic velocity in the left ICA measures 71.1 cm/s. The peak systolic velocity in the l eft CCA measures 102.9 cm/s. The right IC/CC ratio is0.55. The left IC/CC ratio is 0.69. Vertebral flow: antegrade, bilaterally. . IMPRESSION: No hemodynamically significant stenosis of Both ICAs.
[2019-12-03 04:47] LABS: #Basophils 0.1 thou/uL (0.0-0.2); #Eosinphils 0.2 thou/uL (0.0-0.7); #Lymphocytes 2.4 thou/uL (1.20-3.40); #Monocytes 0.8 thou/uL (0.11-0.59); #Neutrophils 6.3 thou/uL (1.40-6.50); %Basophils 0.8 % (0.0-1.0); %Eosinophils 1.6 % (0.0-10.0); %Lymphocytes 24.4 % (21.0-51.0); %Monocytes 8.5 % (0.0-10.0); %Neutrophils 64.8 % (42.0-75.0); Hemoglobin 13.7 g/dL (12.0-16.0); Mean Corpuscular HGB CONC 33.6 g/dL (32.0-36.0); Mean Corpuscular Hemoglobin 29.6 pg (27.0-31.0); Mean Corpuscular Volume 87.9 fL (78.0-98.0); Mean Platelet Volume 9.6 fL (7.4-10.4); Platelet Count 240 thou/uL (130-400); RBC Distribution Width 11.8 % (11.5-14.5); Red Blood Cell (RBC) Count 4.64 mill/uL (4.20-5.40); White Blood Cell (WBC) Count 9.7 thou/uL (4.8-10.8)
[2019-12-03] MEDS: Clopidogrel Bisulfate 75 MG TAB PO SCH (08:37)
[2019-12-03] MEDS: Aspirin 81 mg Enteric Coated Tablet PO SCH (08:37)
[2019-12-03] MEDS ORDERED: Lisinopril/Hydrochlorothiazide 20/25 mg Tablet PO SCH (09:00)
[2019-12-03] MEDS ORDERED: Sodium Chloride 0.9% 200 ML IV PRN (10:00)
--- NOTE | 2019-12-03 12:49 | PDOC.HOSPP ---
- Subjective Encounter Date: 12/03/19 Encounter Time: 09:30 Subjective: pt quite anxious to go home, spouse states that they live an hour from here, prefer home PT. one BP reading low nl, but came back. - Objective Vital Signs & Weight: Vital Signs (12 hours) Temp Pulse Resp BP Pulse Ox 12/03/19 11:20 97.5 F L 60 17 141/77 H 95 12/03/19 08:37 93 L 12/03/19 07:28 97.7 F 76 18 97/51 L 93 L 12/03/19 03:45 97.4 F L 64 16 141/75 H 96 Weight Weight 137 lb 1.6 oz I&O: 12/02/19 12/03/19 12/04/19 06:59 06:59 06:59 Intake Total 480 650 Output Total 0 Balance 480 650 Result Diagrams: 12/03/19 04:32 12/01/19 11:44 Hospitalist ROS - Medication Medications: Active Medications Generic Name Dose Route Start Last Admin Trade Name Abisaiq PRN Reason Stop Dose Admin Acetaminophen 650 mg 12/01/19 15:39 12/02/19 09:38 Tylenol PO 650 mg Q4H PRN Administration Headache/Fever/Mild Pain (1-3) Aspirin 81 mg 12/02/19 09:00 12/03/19 08:37 Ecotrin PO 81 mg DAILY DERRELL Administration Clopidogrel Bisulfate 75 mg 12/02/19 09:00 12/03/19 08:37 Plavix PO 75 mg DAILY DERRELL Administration Pantoprazole Sodium 40 mg 12/02/19 09:00 12/03/19 08:37 Protonix PO 40 mg DAILY DERRELL Administration - Exam General Appearance: NAD, awake alert Eye: PERRL ENT: normocephalic atraumatic Neck: supple Heart: RRR, normal peripheral pulses Respiratory: CTAB, normal chest expansion Gastrointestinal: soft, normal bowel sounds, no guarding Extremities - other findings: RUE 1/5, RLE 2/5; LUE & LLE 10/09 Neurological: facial droop, speech deficit Neurological - other findings: RUE 1, RLE 2/5; LUE & LLE 10/09 Psychiatric: A&O x 3 Hosp A/P - Plan Watershed infarct in Left hemisphere Expressive aphasia------------> on --cw speech therapy --asa, plavix --permissive hypertension for another 24hrs. -PT/OT c/s placed carotid doppler -- -> No sig.stenosis b/l, CTA --no abnormality. RUE 06/11, RLE 07/12; LUE & LLE 10/09 Right hemiparesis --would benefit with aggressive at rehab facility --but not sure pt prefer that -she is anxi this am to go home actually -- spouse states that he will wheel her for out [smoking?] and states that he may be able to help at home if he can get walker, -- will request PT and CM to decide on that. hx of prior CVA without deficits -- mgmt as above HLP w.. LDL 156 --statin contra -- as documented allergy HTN - allow permissive HTN x 24hrs and intervene w.. PRN if SBP>180 -technically pt had stroke sxs 6 days including 4 days at home prior to admission -as SBP in 140 range, will let it without adding home BP meds and if it goes above 160, then start low dose lisinopril only without adding HCTZ[home regimen] It also appears pt smokes and uses meth - could go into anxi/agitation--monitor closely -- it looks like she is going out w.. spouse for smokes -Nicotine patch PRN ordered. NO aC for next 24hrs. ---------can start lovenox sc for DVT .
[2019-12-03] MEDS ORDERED: Nicotine 14 MG PATCH TD PRN (13:00)
--- NOTE | 2019-12-03 13:21 | PDOC.HOSPP ---
- Subjective Encounter Date: 12/03/19 Subjective: NEUROLOGY PROGRESS NOTE No acute events overnight. Clinically improved but aphasic. - Objective Vital Signs & Weight: Vital Signs (12 hours) Temp Pulse Resp BP Pulse Ox 12/03/19 11:20 97.5 F L 60 17 141/77 H 95 12/03/19 08:37 93 L 12/03/19 07:28 97.7 F 76 18 97/51 L 93 L 12/03/19 03:45 97.4 F L 64 16 141/75 H 96 Weight Weight 137 lb 1.6 oz I&O: 12/02/19 12/03/19 12/04/19 06:59 06:59 06:59 Intake Total 480 650 Output Total 0 Balance 480 650 Result Diagrams: 12/03/19 04:32 12/01/19 11:44 Radiology Reviewed by me: Yes EKG Reviewed by me: Yes Hospitalist ROS - Review of Systems ROS unobtainable: due to mental status (aphasia) - Medication Medications: Active Medications Generic Name Dose Route Start Last Admin Trade Name Abisaiq PRN Reason Stop Dose Admin Acetaminophen 650 mg 12/01/19 15:39 12/02/19 09:38 Tylenol PO 650 mg Q4H PRN Administration Headache/Fever/Mild Pain (1-3) Aspirin 81 mg 12/02/19 09:00 12/03/19 08:37 Ecotrin PO 81 mg DAILY DERRELL Administration Clopidogrel Bisulfate 75 mg 12/02/19 09:00 12/03/19 08:37 Plavix PO 75 mg DAILY DERRELL Administration Pantoprazole Sodium 40 mg 12/02/19 09:00 12/03/19 08:37 Protonix PO 40 mg DAILY DERRELL Administration - Exam General Appearance: awake alert Eye: PERRL ENT: normocephalic atraumatic Neck: supple Heart: RRR Respiratory: CTAB Gastrointestinal: soft Extremities: no cyanosis Skin: normal turgor Neurological: facial droop, hemiplegia, speech deficit Neurological - other findings: right hemiparesis, right facial droop Musculoskeletal: no muscle wasting (aphasic) Hosp A/P (1) CVA (cerebral vascular accident) Code(s): I63.9 - CEREBRAL INFARCTION, UNSPECIFIED Status: Acute - Plan PT/OT, speech therapy, out of bed/ambulate 59 year old with acute onset right hemiparesis and aphasia. MRI brain reviewed which was consistent with acute infarction in LMCA territory. Carotid dopplers negative for hemodynamically significant stenosis. 2D ECHO shopwed LVEF 60-65 %. No thrombus or PFO. Continue aspirin, plavix and high intensity statin for secondary stroke prevention. Neurochecks every 4 hours. Strict control of BG. Monitor BP. Continue home medications. PT/OT/Speech Continue medical management per primary team. Plan discussed with the patient.
[2019-12-04] MEDS: Acetaminophen 325 MG TAB PO PRN (03:21)
[2019-12-04] MEDS: Clopidogrel Bisulfate 75 MG TAB PO SCH (08:57)
[2019-12-04] MEDS: Aspirin 81 mg Enteric Coated Tablet PO SCH (08:57)
--- NOTE | 2019-12-04 12:21 | PDOC.HOSPP ---
- Subjective Encounter Date: 12/04/19 Subjective: NEUROLOGY PROGRESS NOTE No acute events overnight. Clinically improved but aphasic. Wants to go home. at bedside. - Objective Vital Signs & Weight: Vital Signs (12 hours) Temp Pulse Resp BP Pulse Ox 12/04/19 11:36 98.4 F 78 18 116/92 H 95 12/04/19 08:59 98 12/04/19 07:29 98.4 F 77 16 128/75 98 12/04/19 04:00 97.4 F L 84 18 149/80 H 95 Weight Weight 137 lb 1.6 oz I&O: 12/03/19 12/04/19 12/05/19 06:59 06:59 06:59 Intake Total 650 560 Output Total 0 Balance 650 560 Result Diagrams: 12/03/19 04:32 12/01/19 11:44 Radiology Reviewed by me: Yes EKG Reviewed by me: Yes Hospitalist ROS - Review of Systems ROS unobtainable: due to mental status (aphasic) - Medication Medications: Active Medications Generic Name Dose Route Start Last Admin Trade Name Freq PRN Reason Stop Dose Admin Acetaminophen 650 mg 12/01/19 15:39 12/04/19 03:21 Tylenol PO 650 mg Q4H PRN Administration Headache/Fever/Mild Pain (1-3) Aspirin 81 mg 12/02/19 09:00 12/04/19 08:57 Ecotrin PO 81 mg DAILY DERRELL Administration Clopidogrel Bisulfate 75 mg 12/02/19 09:00 12/04/19 08:57 Plavix PO 75 mg DAILY DERRELL Administration Nicotine 14 mg 12/03/19 13:00 12/03/19 17:02 Nicoderm Patch TD 14 mg Q24H PRN Administration Smoking Cessation Pantoprazole Sodium 40 mg 12/02/19 09:00 12/04/19 08:57 Protonix PO 40 mg DAILY DERRELL Administration - Exam General Appearance: awake alert Eye: PERRL ENT: normocephalic atraumatic Neck: supple Heart: RRR Respiratory: CTAB Gastrointestinal: soft Extremities: no cyanosis Skin: normal turgor Neurological: facial droop, hemiplegia, speech deficit Neurological - other findings: aphasia, right hemiparesis Psychiatric: normal affect, normal behavior (aphasic) Hosp A/P (1) CVA (cerebral vascular accident) Code(s): I63.9 - CEREBRAL INFARCTION, UNSPECIFIED Status: Acute - Plan PT/OT, speech therapy, out of bed/ambulate 59 year old with acute onset right hemiparesis and aphasia. She continues to have signifiacnt neurological deficits. MRI brain reviewed which was consistent with acute infarction in LMCA territory. Carotid dopplers negative for hemodynamically significant stenosis. 2D ECHO shopwed LVEF 60-65 %. No thrombus or PFO. Continue aspirin, plavix and high intensity statin for secondary stroke prevention. Neurochecks every 4 hours. Strict control of BG. Monitor BP. Continue home medications. PT/OT/Speech- Patient has significant neurological deficits from stroke. solution manager on board regarding discharge planning. Continue medical management per primary team. Plan discussed with the patient and the and with the floor team during stroke rounds.
[2019-12-04] MEDS ORDERED: Lorazepam 2 MG/ML VIAL SLOW IVP PRN (14:09)
--- NOTE | 2019-12-04 14:12 | PDOC.HOSPP ---
- Subjective Encounter Date: 12/04/19 Encounter Time: 09:30 Subjective: dc plan -- talk to ST and spouse. pt is not listening to me, when i mentioned rehab, she looks more agitated and acknoledges that she likes to go home. - Objective Vital Signs & Weight: Vital Signs (12 hours) Temp Pulse Resp BP Pulse Ox 12/04/19 11:36 98.4 F 78 18 116/92 H 95 12/04/19 08:59 98 12/04/19 07:29 98.4 F 77 16 128/75 98 12/04/19 04:00 97.4 F L 84 18 149/80 H 95 Weight Weight 137 lb 1.6 oz I&O: 12/03/19 12/04/19 12/05/19 06:59 06:59 06:59 Intake Total 650 560 Output Total 0 Balance 650 560 Result Diagrams: 12/03/19 04:32 12/01/19 11:44 Hospitalist ROS - Medication Medications: Active Medications Generic Name Dose Route Start Last Admin Trade Name Conchis PRN Reason Stop Dose Admin Acetaminophen 650 mg 12/01/19 15:39 12/04/19 03:21 Tylenol PO 650 mg Q4H PRN Administration Headache/Fever/Mild Pain (1-3) Aspirin 81 mg 12/02/19 09:00 12/04/19 08:57 Ecotrin PO 81 mg DAILY DERRELL Administration Clopidogrel Bisulfate 75 mg 12/02/19 09:00 12/04/19 08:57 Plavix PO 75 mg DAILY DERRELL Administration Nicotine 14 mg 12/03/19 13:00 12/03/19 17:02 Nicoderm Patch TD 14 mg Q24H PRN Administration Smoking Cessation Pantoprazole Sodium 40 mg 12/02/19 09:00 12/04/19 08:57 Protonix PO 40 mg DAILY DERRELL Administration - Exam General Appearance: NAD, awake alert Heart: RRR Respiratory: CTAB, normal chest expansion Gastrointestinal: soft, normal bowel sounds, no palpable masses Neurological: facial droop, speech deficit Hosp A/P - Plan Watershed infarct in Left hemisphere Expressive aphasia------------> on --cw speech therapy --asa, plavix --permissive hypertension for another 24hrs. -PT/OT c/s placed carotid doppler -- -> No sig.stenosis b/l, CTA --no abnormality. RUE 1, RLE 2/; LUE & LLE 10/09 Right hemiparesis --would benefit with aggressive at rehab facility --but not sure pt prefer that -she is anxi this am to go home actually -- spouse states that he will wheel her for out [smoking?] and states that he may be able to help at home if he can get walker, -- will request PT and CM to decide on that. hx of prior CVA without deficits -- mgmt as above HLP w.. LDL 156 --statin contra -- as documented allergy HTN - allow permissive HTN x 24hrs and intervene w.. PRN if SBP>180 -technically pt had stroke sxs 6 days including 4 days at home prior to admission -as SBP in 140 range, will let it without adding home BP meds and if it goes above 160, then start low dose lisinopril only without adding HCTZ[home regimen] It also appears pt smokes and uses meth - could go into anxi/agitation--monitor closely -- it looks like she is going out w.. spouse for smokes -Nicotine patch PRN ordered. NO aC for next 24hrs. ---------can start lovenox sc for DVT . dc orders done and dc summary dictated later spouse told that he does not want to take her home [based on y'days conversation, pref'd to go home] - will look into rehab options. - ativan prn for anxiety.
--- NOTE | 2019-12-04 14:23 | CT ---
CTA HEAD WITH CONTRAST: 12/01/19 Axial tomograms obtained with multiplanar reconstruction and 3D postprocessing following angio protoc ol. INDICATIONS: Stroke protocol. FINDINGS: The intracranial internal carotid arteries are patent and symmetric. Anterior cerebral arteries appea r patent and symmetric. The middle cerebral arteries are patent. There is an asymmetric curvature of the mid M1 segment on the right; however, there is no evidence of focal stenosis or occlusion. The pa rasylvian branches appear symmetric bilaterally. The basilar artery is patent. The proximal posterior cerebral arteries appear symmetric. IMPRESSION: Unremarkable CTA head. No evidence of proximal cerebral artery stenosis or occlusion. CTA NECK: Axial tomograms were obtained with multiplanar reconstruction and 3D postprocessing. INDICATIONS: Stroke protocol. FINDINGS: Atherosclerotic changes are seen at the aortic arch. No evidence of significant stenosis at the origi n of the arch vessels. Common carotid arteries appear patent and symmetric with mild atherosclerotic change. Atherosclerotic changes seen in the bulbs bilaterally. There is both calcified and soft plaque in bot h proximal ICAs which does result in mild stenosis bilaterally. The degree of stenosis does not appea rs hemodynamically significant (greater than 50%) by NASCET criteria. ICAs above the bulbs appear pat ent and symmetric. Vertebral arteries appear patent and symmetric. The dural venous sinuses in the head appear patent. S oft tissues reveals a 1 cm low density nodule in the right lobe of the thyroid and a tiny low density nodule in the left lobe of thyroid. Osseous structures show degenerative changes with spondylosis encroaching into the spinal canal at C5 -6. IMPRESSION: 1. Mild atherosclerotic changes seen at both bulbs without evidence of hemodynamically significant st enosis. 2. Thyroid nodules are incidentally noted. Findings relayed to Dr. Fitzgerald. Paloma CR
[2019-12-05] MEDS: Clopidogrel Bisulfate 75 MG TAB PO SCH (09:23)
[2019-12-05] MEDS: Aspirin 81 mg Enteric Coated Tablet PO SCH (09:23)
--- NOTE | 2019-12-05 10:26 | PDOC.HOSPP ---
- Subjective Encounter Date: 12/05/19 Subjective: NEUROLOGY PROGRESS NOTE No acute events overnight. Clinically improved but aphasic. Agitated today. at bedside. - Objective Vital Signs & Weight: Vital Signs (12 hours) Temp Pulse Resp BP Pulse Ox 12/05/19 07:09 98.2 F 97 18 142/79 H 96 12/05/19 05:12 97.4 F L 65 16 144/69 H 93 L 12/05/19 00:36 97.9 F 69 16 138/67 92 L Weight Weight 137 lb 1.6 oz I&O: 12/04/19 12/05/19 12/06/19 06:59 06:59 06:59 Intake Total 560 758 Balance 560 758 Result Diagrams: 12/03/19 04:32 12/01/19 11:44 Radiology Reviewed by me: Yes EKG Reviewed by me: Yes Hospitalist ROS - Review of Systems ROS unobtainable: due to mental status (aphasia) - Medication Medications: Active Medications Generic Name Dose Route Start Last Admin Trade Name Freq PRN Reason Stop Dose Admin Acetaminophen 650 mg 12/01/19 15:39 12/04/19 03:21 Tylenol PO 650 mg Q4H PRN Administration Headache/Fever/Mild Pain (1-3) Aspirin 81 mg 12/02/19 09:00 12/05/19 09:23 Ecotrin PO 81 mg DAILY DERRELL Administration Clopidogrel Bisulfate 75 mg 12/02/19 09:00 12/05/19 09:23 Plavix PO 75 mg DAILY DERRELL Administration Lorazepam 1 mg 12/04/19 14:09 12/05/19 09:30 Ativan SLOW IVP 1 mg Q6H PRN Administration Agitation Nicotine 14 mg 12/03/19 13:00 12/03/19 17:02 Nicoderm Patch TD 14 mg Q24H PRN Administration Smoking Cessation Pantoprazole Sodium 40 mg 12/02/19 09:00 12/05/19 09:23 Protonix PO 40 mg DAILY DERRELL Administration - Exam General Appearance: awake alert Eye: PERRL ENT: normocephalic atraumatic Neck: supple Heart: RRR Respiratory: CTAB Gastrointestinal: soft Extremities: no cyanosis Skin: normal turgor Neurological: facial droop, hemiplegia, speech deficit Neurological - other findings: mild right hemiparesis, aphasia Hosp A/P (1) CVA (cerebral vascular accident) Code(s): I63.9 - CEREBRAL INFARCTION, UNSPECIFIED Status: Acute - Plan plan discussed w/ family, PT/OT, speech therapy, out of bed/ambulate Consults: other (rehab) 59 year old with acute onset right hemiparesis and aphasia. She continues to have aphasia and wants to go home. Agitated at baseline. PT/OT/Speech- Patient has significant neurological deficits from stroke. 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 Rehab recommended. Awaiting transfer pending insurance. MRI brain reviewed which was consistent with acute infarction in LMCA territory. Carotid dopplers negative for hemodynamically significant stenosis. 2D ECHO shopwed LVEF 60-65 %. No thrombus or PFO. Continue aspirin, plavix and high intensity statin for secondary stroke prevention. Neurochecks every 4 hours. Strict control of BG and BP. Continue home medications. Continue medical management per primary team. Plan discussed with the patient and the .
--- NOTE | 2019-12-05 13:08 | PDOC.HOSPP ---
- Subjective Subjective: talk to spouse - pt just awoke, and still non-verbal. - Objective Vital Signs & Weight: Vital Signs (12 hours) Temp Pulse Resp BP Pulse Ox 12/05/19 11:18 97.6 F 72 16 140/80 92 L 12/05/19 07:09 98.2 F 97 18 142/79 H 96 12/05/19 05:12 97.4 F L 65 16 144/69 H 93 L Weight Weight 137 lb 1.6 oz I&O: 12/04/19 12/05/19 12/06/19 06:59 06:59 06:59 Intake Total 560 758 Balance 560 758 Result Diagrams: 12/03/19 04:32 12/01/19 11:44 Hospitalist ROS - Medication Medications: Active Medications Generic Name Dose Route Start Last Admin Trade Name Freq PRN Reason Stop Dose Admin Acetaminophen 650 mg 12/01/19 15:39 12/04/19 03:21 Tylenol PO 650 mg Q4H PRN Administration Headache/Fever/Mild Pain (1-3) Aspirin 81 mg 12/02/19 09:00 12/05/19 09:23 Ecotrin PO 81 mg DAILY DERRELL Administration Clopidogrel Bisulfate 75 mg 12/02/19 09:00 12/05/19 09:23 Plavix PO 75 mg DAILY DERRELL Administration Lorazepam 1 mg 12/04/19 14:09 12/05/19 09:30 Ativan SLOW IVP 1 mg Q6H PRN Administration Agitation Nicotine 14 mg 12/03/19 13:00 12/03/19 17:02 Nicoderm Patch TD 14 mg Q24H PRN Administration Smoking Cessation Pantoprazole Sodium 40 mg 12/02/19 09:00 12/05/19 09:23 Protonix PO 40 mg DAILY DERRELL Administration Hosp A/P - Plan Watershed infarct in Left hemisphere Expressive aphasia------------> on --cw speech therapy --asa, plavix --permissive hypertension for another 24hrs. -PT/OT c/s placed carotid doppler -- -> No sig.stenosis b/l, CTA --no abnormality. RUE 1, RLE 2; LUE & LLE 10/09 Right hemiparesis --would benefit with aggressive at rehab facility --but not sure pt prefer that -she is anxi this am to go home actually -- spouse states that he will wheel her for out [smoking?] and states that he may be able to help at home if he can get walker, -- will request PT and CM to decide on that. hx of prior CVA without deficits -- mgmt as above HLP w.. LDL 156 --statin contra -- as documented allergy HTN - allow permissive HTN x 24hrs and intervene w.. PRN if SBP>180 -technically pt had stroke sxs 6 days including 4 days at home prior to admission -as SBP in 140 range, will let it without adding home BP meds and if it goes above 160, then start low dose lisinopril only without adding HCTZ[home regimen] It also appears pt smokes and uses meth - could go into anxi/agitation--monitor closely -- it looks like she is going out w.. spouse for smokes -Nicotine patch PRN ordered. NO aC for next 24hrs. ---------can start lovenox sc for DVT . dc orders done and dc summary dictated later spouse told that he does not want to take her home [based on y'days conversation, pref'd to go home] - will look into rehab options. - ativan prn for anxiety. waiting for rehab.
[2019-12-06] MEDS: Clopidogrel Bisulfate 75 MG TAB PO SCH (10:40)
[2019-12-06] MEDS: Aspirin 81 mg Enteric Coated Tablet PO SCH (10:40)
--- NOTE | 2019-12-06 11:36 | PDOC.HOSPP ---
- Subjective Encounter Date: 12/05/19 Subjective: NEUROLOGY PROGRESS NOTE No acute events overnight. Clinically improved but aphasic. Calm today and following commands appropriately. - Objective Vital Signs & Weight: Vital Signs (12 hours) Temp Pulse Resp BP BP BP Pulse Ox 12/06/19 10:59 97.9 F 53 L 22 H 130/68 97 12/06/19 10:14 97.9 F 56 L 18 133/75 94 L 12/06/19 09:01 140/72 143/73 H 12/06/19 03:10 97.9 F 65 16 131/69 93 L 12/05/19 23:53 97.6 F 67 16 125/74 96 Weight Weight 137 lb 1.6 oz I&O: 12/05/19 12/06/19 12/07/19 06:59 06:59 06:59 Intake Total 758 610 Balance 758 610 Result Diagrams: 12/03/19 04:32 12/01/19 11:44 Radiology Reviewed by me: Yes EKG Reviewed by me: Yes Hospitalist ROS - Review of Systems ROS unobtainable: due to mental status (aphasic) - Medication Medications: Active Medications Generic Name Dose Route Start Last Admin Trade Name Freq PRN Reason Stop Dose Admin Acetaminophen 650 mg 12/01/19 15:39 12/04/19 03:21 Tylenol PO 650 mg Q4H PRN Administration Headache/Fever/Mild Pain (1-3) Aspirin 81 mg 12/02/19 09:00 12/06/19 10:40 Ecotrin PO 81 mg DAILY DERRELL Administration Clopidogrel Bisulfate 75 mg 12/02/19 09:00 12/06/19 10:40 Plavix PO 75 mg DAILY DERRELL Administration Lorazepam 1 mg 12/04/19 14:09 12/05/19 09:30 Ativan SLOW IVP 1 mg Q6H PRN Administration Agitation Nicotine 14 mg 12/03/19 13:00 12/03/19 17:02 Nicoderm Patch TD 14 mg Q24H PRN Administration Smoking Cessation Pantoprazole Sodium 40 mg 12/02/19 09:00 12/06/19 10:40 Protonix PO 40 mg DAILY DERRELL Administration - Exam General Appearance: awake alert Eye: PERRL ENT: normocephalic atraumatic Neck: supple Heart: RRR Respiratory: CTAB Gastrointestinal: soft Extremities: no cyanosis Skin: normal turgor Neurological: facial droop, hemiplegia, speech deficit Neurological - other findings: aphasic RIGHT HEMIPARESIS ARM>> LEG Psychiatric: normal affect, normal behavior (aphasic) Hosp A/P (1) CVA (cerebral vascular accident) Code(s): I63.9 - CEREBRAL INFARCTION, UNSPECIFIED Status: Acute - Plan PT/OT, speech therapy Consults: other (rehab) 59 year old with acute onset right hemiparesis and aphasia. She continues to have aphasia and right hemiparesis . More calm today and followed commands appropriately. PT/OT/Speech- Patient has significant neurological deficits from stroke. senior brand manager on board regarding discharge planning. Patient accepted to rehab. MRI brain reviewed which was consistent with acute infarction in LMCA territory. Carotid dopplers negative for hemodynamically significant stenosis. 2D ECHO shopwed LVEF 60-65 %. No thrombus or PFO. Continue aspirin, plavix and high intensity statin for secondary stroke prevention. Neurochecks every 4 hours. Strict control of BG and BP. Continue home medications. Continue medical management per primary team. Plan discussed with the floor team during stroke rounds..
[2019-12-06] MEDS ORDERED: Atorvastatin Calcium 20 MG TAB PO SCH (12:30)
[2019-12-06 15:24] VITALS: TEMP 98.6
[2019-12-06 15:31] VITALS: BP 158/78
--- NOTE | 2019-12-07 11:21 | DIS ---
DATE OF ADMISSION: 12/01/2019 DATE OF DISCHARGE: 12/06/2019 DISCHARGE DIAGNOSES: 1. Severe expressive aphasia. 2. Watershed infarct in the left hemisphere, right hemiparesis, more significant in the right upper extremity than lower extremity. 3. Remote history of prior cerebrovascular accident. 4. Hyperlipidemia with LDL of 156. 5. Hypertension. PHYSICAL EXAMINATION: VITAL SIGNS: On the day of discharge, temperature 97.9, pulse 53, saturating 97 % on room air, blood pressure 143/73. GENERAL: She is resting well. She does not appear to be in any distress today. Her spouse is not at bedside. I talked to the nurse and it appears that rehab bed likely available today, so we initiated transfer process to the [facility] rehab. CARDIOVASCULAR: Regular rate and rhythm without murmurs, rubs, or gallops. LUNGS: Clear. ABDOMEN: Soft. NEUROLOGIC: Her right facial droop seems to be slightly better than the initial presentation. HOSPITAL COURSE: A 59-year-old female admitted with acute onset of right hemiparesis and aphasia. She also had right facial droopiness. Questionable history of drug use and ongoing active tobacco use. She went through physical therapy as well as speech therapy evaluation. She has significant neurological deficits from the stroke. Her carotid Doppler is negative for hemodynamically significant stenosis. MRI showed acute infarct in the left MCA territory. 2D echo with EF of 65%. No thrombus or PFO. She continued her home regimen of aspirin, Plavix, and statin. She is hemodynamically stable. She does have ongoing severe neurological deficits that did not improve during this stay. At some point, decided to take her home with physical therapy and speech therapy visitations; however, they live [place] hour drive from here. Also, he is not sure able to provide adequate therapy at home. There is also concern whether the patient is able to understand what is going on for her and able to express that given her significant aphasia. He agreed to look into rehab options. She will be transferred to the rehab today in hemodynamically stable condition. DISCHARGE MEDICATIONS: 1. Aspirin 81 mg daily. 2. Plavix 75 mg daily. 3. Lipitor 40 mg daily. 4. Nitroglycerin sublingual 0.4 mg q.5 minutes p.r.n. 5. Lisinopril 10 mg daily. 6. Isosorbide mononitrate 15 mg daily. 7. Gabapentin 100 mg t.i.d. DISCHARGE INSTRUCTIONS: Activity with physical therapist supervision. Healthy heart diet. Follow up with PCP in 1 week after the rehab. TIME SPENT: Discharge time over 35 minutes. Job ID: [id number] MTDD
--- NOTE | 2019-12-08 12:23 | DIS ---
DATE OF ADMISSION: 12/01/2019 DATE OF DISCHARGE: 12/06/2019 DISCHARGE DIAGNOSES: 1. Cerebrovascular accident, expressive aphasia. 2. Right hemiparesis with acute infarction in the left middle cerebral artery territory. 3. Hyperlipidemia with LDL of 156, contraindicated for statin, so Lipitor is not prescribed at the time of discharge. 4. Hypertension. The patient is on lisinopril/hydrochlorothiazide as well as Imdur. The patient had low blood pressure ranges during this hospitalization, so these medications discontinued and low-dose lisinopril has been prescribed given her cerebrovascular accident. 5. Watershed infarct in the left hemisphere. CONSULT: Neurology consult. DISCHARGE PHYSICAL EXAMINATION: VITAL SIGNS: Temperature 98.4, pulse 78, blood pressure 116/92, saturating 95% on room air. I talked to the spouse as well as the patient. The patient does not want to go to the rehab. She was quite anxious to go home. I discussed, the patient still does not have her speech returned, she is trying, but it is mostly garbled speech. I talked with spouse. He wants to have a home health for physical therapy as well as speech therapy. I talked with Speech Therapy and they will give spouse the instructions for home training. CARDIOVASCULAR: Regular rate and rhythm without murmurs, rubs, or gallops. LUNGS: Clear. ABDOMEN: Abdominal exam benign. NEURO: The patient still has expressive aphasia, but she is alert and oriented x3. She has right upper extremity strength only 2/5, right lower extremity 3/5, left lower extremity 4/5, left upper extremity 4/5. She also has a right facial droop. HOSPITAL COURSE: A 59-year-old female with a history of hypertension, coronary artery disease, peripheral vascular disease, hyperlipidemia, chronic pain syndrome, history of CVA in the past with numbness in her right arm, presented with significant aphasia. Symptoms started 4 days ago, but she came to the ER on . Initial evaluation showed she had significant expressive aphasia. Her weakness became more notable during next day rounding. She was not able to lift right upper arm much, able to lift her right leg slightly, but not as good as on the left side. Her expressive aphasia remained without much change during this hospitalization. Physical Therapy as well as Speech Therapy followed her. We allowed permissive hypertension for 2 days. She seems to have blood pressure in systolic 140 range. She is on long-acting Imdur as well as lisinopril/hydrochlorothiazide combination. Initially, she had blood pressure on the borderline improved only to systolic 140 range. Because of this, I have discontinued her lisinopril/hydrochlorothiazide and given her only low-dose lisinopril 10 mg daily. The patient also has hyperlipidemia. However, it was noted that she is allergic to statin. Review of her medications shows that she is taking atorvastatin. I have counseled both the patient and the spouse recommending the rehab given her right hemiparesis and ongoing expressive aphasia. They live an hour drive from here and prefers to go home. I talked to the vocational case manager. We will arrange for home health with physical therapy as well as speech therapy. I also talked to the speech therapist, who would give instructions to the spouse to help his with continued speech therapy at home. later plan changed and patient is discharged to rehab. DISCHARGE INSTRUCTIONS: Activity with supervision only. She would also be able to go with a walker. Healthy heart diet as well as soft diet to avoid any aspiration risk. Follow up with primary care in 1 week. TIME SPENT: Discharge time took over 35 minutes. ADDENDUM: DISCHARGE MEDICATIONS: 1. Aspirin 325 mg daily. 2. Plavix 75 mg daily. 3. Nitroglycerin 0.4 mg sublingual as needed. 4. Protonix 40 mg daily. These are the previous home medications for today. She did express some subtle somnolence during her stay, so I have discontinued her previous gabapentin regimen and prescribed low-dose 100 mg t.i.d., Topiramate 50 mg daily, but the patient states that she is not taking any more Topiramate. Job ID: [id number] MTDD
== END 2019-12-06 17:20 | DRG 65 ==
LOC: ERS 11:32 → 2SE 14:27
PROVIDERS: ADMIT Internal Medicine; ATTEND Internal Medicine
DX: I63.9 Cerebral infarction, unspecified (principal); G81.91 Hemiplegia, unspecified affecting right dominant side; I10 Essential (primary) hypertension; R47.01 Aphasia; R29.810 Facial weakness; E78.5 Hyperlipidemia, unspecified; I73.9 Peripheral vascular disease, unspecified; G89.4 Chronic pain syndrome; R47.9 Unspecified speech disturbances; G62.9 Polyneuropathy, unspecified; Z88.6 Allergy status to analgesic agent; Z88.1 Allergy status to other antibiotic agents; Z88.0 Allergy status to penicillin; Z88.8 Allergy status to other drugs, medicaments and biological substances; Z90.710 Acquired absence of both cervix and uterus; Z90.49 Acquired absence of other specified parts of digestive tract; Z86.73 Personal history of transient ischemic attack (TIA), and cerebral infarction without residual deficits
CPT/HCPCS: 36415; 36416; 70450; 70496; 70498; 70553; 71045; 80053; 80061; 80306; 80307; 81003; 81015; 83036; 84443; 84484; 85025; 85610; 85730; 93005; 93306; 93880; J2060; Q9967